=== PATIENT | female | born 1940 | race Caucasian/White ===

== ENCOUNTER 2018-05-21 17:23 | Emergency (ER) | payer BC, MEDICARE ==
[~2018-05-21] VITALS: Ht 152.4 cm; Wt 53.0 kg
[2018-05-21 17:26] VITALS: BP 144/52
--- NOTE | 2018-05-21 17:44 | NUR ---
BIB EMS. FOUND IN BATHROOM OF [facility], INCONTINENT AND SITTING ON BATHROOM FLOOR. PT ADMITS TO SIGNIFICANT ETOH USE TODAY. PT A&OX4. DENIES ANY PAIN OR INJURY. NO SIGNS OF TRAUMA. NEURO INTACT. PT RESTING ON GURNEY. CALL LIGHT IN REACH. SIDERAILS UP X 2. S[address]. EDUCATION PROVIDED ON USE OF CALL LIGHT AND AGREES NOT TO GET OUT OF BED WITHOUT ASSISTANCE.
--- NOTE | 2018-05-21 18:25 | NUR ---
breathalyzer 0.159. pt reports drinking 3 glasses of wine. Pt very anxious. She denies drug use. Well dressed and put together. Pt gave me the phone number for her ex- and he said she used to be able to drink a bottle of wine. He does not think she is drinking that much anymore, but he had a concern that when she left [place] she was going to come here and drink too much. He is available for questions .
--- NOTE | 2018-05-21 19:10 | NUR ---
Patient/Caregiver given discharge instructions and they have confirmed that they understand the instructions. Patient ambulatory with steady gait.
== END 2018-05-21 19:11 | disposition home or self-care (01) ==
LOC: ED 18:35
DX: F10.120 Alcohol abuse with intoxication, uncomplicated (principal)
CPT/HCPCS: 99283